=== PATIENT | male | born 1965 | race African-American/Black ===

== ENCOUNTER 2018-02-04 16:55 | Inpatient (IN) | payer OTHER ==
[~2018-02-04] VITALS: Ht 172.7 cm; Wt 122.0 kg
[~2018-02-04 16:55] MED LIST changes: -OPTIRAY 320 IV PRN; -RANI150T3 PO
[2018-02-04] MEDS ORDERED: METOCLOPRAMIDE HCL INJ 5 MG/ML 2 ML VIAL IV. STA (17:23)
[2018-02-04] MEDS ORDERED: MoRPHine SULFATE 4 MG/ML 1 ML CARP\\VIAL IV STA (17:23)
--- NOTE | 2018-02-04 17:25 | EMERGENCY ROOM VISIT NOTE ---
History Report prepared by Stacey: Brent Gutierrez Under the Supervision of: Dr. Nathaniel Lagunas M.D. First contact with patient: 17:05 Chief Complaint: ABDOMINAL PAIN Stated Complaint: ABDOMINAL PAIN History of Present Illness The patient is a 52 year old male with a past medical history of acid reflux who presents to the ED with a cc of constant abdominal pain beginning yesterday. Positive for nausea and dry heaving. Negative for urinary symptoms and edema. The patient states that he had a CT done for his abdominal pain yesterday and was referred to the emergency department today for a possible bowel obstruction. He notes that his current symptoms feel like one of his usual acid reflux attacks. He reports that his pain is worse on the lower left. The patient states that his last bowel movement was yesterday and was normal, but notes that he is not currently passing any gas. He reports that his pain worsens when he drinks. The patient states that his son recently had the flu. Source of History: patient Onset: yesterday Position: abdomen Timing: constant Modifying Factors (Worsening): drinking Associated Symptoms: + nausea, No urinary symptoms Note: He also complains of dry heaving. He denies any edema. Review of Systems See HPI for pertinent positives and negatives. A total of ten systems were reviewed and were otherwise negative. Past Medical & Surgical Medical Problems: (1) Acid reflux Family History No pertinent family history stated. Social History Smoking Status: Never Smoker Marital Status: Occupation Status: employed Current/Historical Medications Scheduled Fluticasone Propionate (Flonase Nasal [place] *), 1 SPRAY PRAVEENA BID Loratadine (Claritin), 10 MG PO DAILY Multivitamin (Multivitamin), 1 TAB PO DAILY Omeprazole (Prilosec), 20 MG PO DAILY Ranitidine Hcl (Zantac), 1 TAB PO BID Allergies Coded Allergies: No Known Allergies (Verified Allergy, Unknown, NO, 05/24/09) Physical Exam Vital Signs Date Time Temp Pulse Resp B/P (MAP) Pulse Ox O2 Delivery O2 Flow Rate FiO2 02/04/18 18:09 73 02/04/18 18:03 74 16 134/81 98 02/04/18 17:03 37.1 65 16 154/77 97 Room Air Physical Exam GENERAL: Awake, alert, well-appearing, NAD, wearing glasses HENT: Normocephalic, atraumatic. EYES: Normal conjunctiva. Sclera non-icteric. NECK: Supple. No nuchal rigidity. FROM. RESPIRATORY: CTAB, no rhonchi, wheezing, crackles CARDIAC: RRR, no MRG ABDOMEN: Soft, BS+, epigastric left upper and left side TTP, mild distension MSK: No chest wall TTP, no LE edema NEURO: GCS 15, CN 2-12 intact, moves all 4s on command SKIN: No rash or jaundice noted. Medical Decision & Procedures ER Provider Diagnostic Interpretation: Radiology results as stated below per my review and radiologist interpretation: CT SCAN OF THE ABDOMEN AND PELVIS WITH IV CONTRAST FINDINGS: Lung bases: The heart is normal in size and without pericardial effusion. The lung bases are clear. Liver: The contrast-enhanced liver is normal in size, contour, and attenuation. There is no intrahepatic biliary ductal dilatation. The hepatic veins and portal veins are patent. Gallbladder: There are large calcified gallstones. Spleen: Normal in size and attenuation. Pancreas: Unremarkable. Adrenal glands: Unremarkable. Kidneys: The contrast enhanced kidneys demonstrate mild cortical atrophy and are without hydronephrosis. The kidneys enhance symmetrically. Abdominal vasculature: The abdominal aorta is normal in course and caliber. Bowel: The stomach and proximal small bowel loops are distended and filled with fluid. Small bowel loops measure up to 3.3 cm in transverse diameter. A transition point is identified in the right lower quadrant on image #351, and the appearance is consistent with a small bowel obstruction. The distal small bowel and colon are decompressed. There is no pneumatosis intestinalis or portal venous gas. No focally thick walled bowel loops are identified. A small volume of interloop fluid is noted. There is mild to moderate colonic diverticulosis without CT evidence of acute diverticulitis. The appendix is not identified and reported surgically absent. Peritoneum: There is no intraperitoneal free air. A small volume of free fluid is seen in the pelvis. There is a small fat-containing umbilical hernia. Surgical clips are identified in the right lower quadrant. Lymphadenopathy: None. Pelvic viscera: The bladder is decompressed and not well evaluated. The prostate gland is diminutive. There are small bilateral fat-containing inguinal hernias. Skeletal structures: No lytic or blastic lesions are seen. IMPRESSION: 1. Findings are consistent with a small bowel obstruction. A transition point is identified in the right lower quadrant and this is likely on the basis of adhesions. 2. Interloop fluid and a small volume of free fluid in the pelvis are likely on a reactive basis. 3. There is no intraperitoneal free air, pneumatosis intestinalis, or focally thick walled bowel loops. 4. Cholelithiasis without CT evidence of acute cholecystitis. 5. Mild to moderate colonic diverticulosis without CT evidence of acute diverticulitis. 6. Additional findings as above. Electronically signed by: Daniel Pritchett M.D. 02/04/2018 4:23 PM Laboratory Results 02/04/18 17:30 Red Blood Count 4.95, Mean Corpuscular Volume 90.3, Mean Corpuscular Hemoglobin 31.1, Mean Corpuscular Hemoglobin Concent 34.5, Mean Platelet Volume 9.4, Neutrophils (%) (Auto) 72.9, Lymphocytes (%) (Auto) 18.0, Monocytes (%) (Auto) 8.2, Eosinophils (%) (Auto) 0.7, Basophils (%) (Auto) 0.1, Neutrophils # (Auto) 6.51, Lymphocytes # (Auto) 1.61, Monocytes # (Auto) 0.73, Eosinophils # (Auto) 0.06, Basophils # (Auto) 0.01 02/04/18 17:30 Test 02/04/18 17:23 02/04/18 17:30 Urine Color YELLOW Urine Appearance CLEAR (CLEAR) Urine pH 6.5 (4.5-7.5) Urine Specific [place] > 1.045 (1.000-1.030) Urine Protein NEG (NEG) Urine Glucose (UA) NEG (NEG) Urine Ketones NEG (NEG) Urine Occult Blood TRACE (NEG) Urine Nitrite NEG (NEG) Urine Bilirubin NEG (NEG) Urine Urobilinogen NEG (NEG) Urine Leukocyte Esterase NEG (NEG) Urine WBC (Auto) 1-5 /hpf (0-5) Urine RBC (Auto) 0-4 /hpf (0-4) Urine Hyaline Casts (Auto) 1-5 /lpf (0-5) Urine Epithelial Cells (Auto) 5-10 /lpf (0-5) Urine Bacteria (Auto) NEG (NEG) White Blood Count 8.93 K/uL (4.8-10.8) Red Blood Count 4.95 M/uL (4.7-6.1) Hemoglobin 15.4 g/dL (14.0-18.0) Hematocrit 44.7 % (42-52) Mean Corpuscular Volume 90.3 fL (80-100) Mean Corpuscular Hemoglobin 31.1 pg (25-34) Mean Corpuscular Hemoglobin Concent 34.5 g/dl (32-36) Platelet Count 244 K/uL (130-400) Mean Platelet Volume 9.4 fL (7.4-10.4) Neutrophils (%) (Auto) 72.9 % Lymphocytes (%) (Auto) 18.0 % Monocytes (%) (Auto) 8.2 % Eosinophils (%) (Auto) 0.7 % Basophils (%) (Auto) 0.1 % Neutrophils # (Auto) 6.51 K/uL (1.4-6.5) Lymphocytes # (Auto) 1.61 K/uL (1.2-3.4) Monocytes # (Auto) 0.73 K/uL (0.11-0.59) Eosinophils # (Auto) 0.06 K/uL (0-0.5) Basophils # (Auto) 0.01 K/uL (0-0.2) RDW Standard Deviation 42.7 fL (36.4-46.3) RDW Coefficient of Variation 13.0 % (11.5-14.5) Immature Granulocyte % (Auto) 0.1 % Immature Granulocyte # (Auto) 0.01 K/uL (0.00-0.02) Anion Gap 5.0 mmol/L (3-11) Est Creatinine Clear Calc Drug Dose 94.5 ml/min Estimated GFR () 82.1 Estimated GFR (Non- 70.8 BUN/Creatinine Ratio 9.8 (10-20) Calcium Level 9.4 mg/dl (8.5-10.1) Total Bilirubin 0.8 mg/dl (0.2-1) Direct Bilirubin 0.2 mg/dl (0-0.2) Aspartate Amino Transf (AST/SGOT) 13 U/L (15-37) Alanine Aminotransferase (ALT/SGPT) 26 U/L (12-78) Alkaline Phosphatase 66 U/L (45-117) Total Protein 7.8 gm/dl (6.4-8.2) Albumin 3.3 gm/dl (3.4-5.0) Lipase 104 U/L (73-393) Laboratory results reviewed by me Medications Administered Medications (Trade) Dose Ordered Sig/Rosenda Route Start Time Stop Time Status Last Admin Dose Admin Metoclopramide HCl (Reglan Inj) 10 mg NOW STAT IV. 02/04/18 17:23 02/04/18 17:25 DC 02/04/18 18:01 10 MG ED Course 170: The patient was evaluated in room B2. A complete history and physical exam was performed. 1809: I spoke to Ramon GAVIN. 1813: Upon reexamination, the patient was stable. I discussed the test results and treatment plan with him. Discussed the patient's case with Dr. Santacruz - JACQUES Mcguire. The patient will be evaluated for further management. Medical Decision The patient is a 52 year old male with a past medical history of acid reflux who presents to the ED with a cc of constant abdominal pain beginning yesterday. Positive for nausea and dry heaving. Negative for urinary symptoms and edema. Differential diagnosis: Etiologies such as appendicitis, diverticulitis, PUD, biliary pathology, UTI, pancreatitis, obstruction, mesenteric ischemia, aortic pathology, infections, inflammatory bowel disease, renal colic, as well as others were entertained. Patient was seen and evaluated the bedside. Patient had complained of some intermittent abdominal pain that began yesterday. Patient had a last bowel movement was yesterday. Patient states that it is obstipated no longer passing gas. Patient did have a CT of the abdomen pelvis that was completed this morning. Did show a small bowel obstruction with a transition point. Patient does have some mild abdominal discomfort on the left side. Patient has had some dry heaving but no true vomiting. Patient has had a prior surgical procedure on the abdomen which include an appendectomy. Patient denies any other procedures. General surgery was consulted. They will see the patient. The medicine service was paged. An NG tube was ordered and placed to low intermittent suction. Head Trauma GCS Score: 15 Medication Reconcilliation Current Medication List: was personally reviewed by me Blood Pressure Screening Patient's blood pressure: Elevated blood pressure Blood pressure disposition: Elevated BP felt to be situational Consults Time Called: 1809 Consulting Physician: Ashanti Meehan Surgery ROMAINE Returned Call: 1809 Discussed the patient's case. Additional Consults: Time Called: 1809 Consulted Physician: Dr. Santacruz - BRANDON McguireG Returned Call: 1813 Additional Comments: Discussed the patient's case. The patient will be evaluated for further treatment and disposition. Impression Primary Impression: SBO (small bowel obstruction) Scribe Attestation The scribe's documentation has been prepared under my direction and personally reviewed by me in its entirety. I confirm that the note above accurately reflects all work, treatment, procedures, and medical decision making performed by me. Departure Information Dispostion Being Evaluated By Hospitalist Referrals Isaiah Disla III, CRNP (PCP) Patient Instructions My [facility]
[2018-02-04 17:55] LABS: BASO % 0.1 %; BASO ABS # 0.01 K/uL (0-0.2); EOS % 0.7 %; EOS ABS # 0.06 K/uL (0-0.5); HEMATOCRIT 44.7 % (42-52); HEMOGLOBIN 15.4 g/dL (14.0-18.0); IG# 0.01 K/uL (0.00-0.02); LYMPH ABS # 1.61 K/uL (1.2-3.4); MEAN CELL VOLUME 90.3 fL (80-100); MEAN CORPUSCULAR HEMOGLOBIN 31.1 pg (25-34); MEAN CORPUSCULAR HGB CONC 34.5 g/dl (32-36); MEAN PLATELET VOLUME 9.4 fL (7.4-10.4); MONO % 8.2 %; MONO ABS # 0.73 K/uL (0.11-0.59); NEUT % 72.9 %; NEUT ABS # 6.51 K/uL (1.4-6.5); PLATELET COUNT 244 K/uL (130-400); RED CELL DISTRIBUTION WIDTH SD 42.7 fL (36.4-46.3); WHITE BLOOD COUNT 8.93 K/uL (4.8-10.8)
[2018-02-04] MEDS ORDERED: RANI150T3 PO (18:22)
[2018-02-04 18:39] LABS: ALBUMIN 3.3 gm/dl (3.4-5.0); CALCIUM 9.4 mg/dl (8.5-10.1); CREATININE 1.19 mg/dl (0.60-1.40); POTASSIUM 3.7 mmol/L (3.5-5.1)
[2018-02-04 18:42] LABS: TOTAL PROTEIN 7.8 gm/dl (6.4-8.2)
[2018-02-04] MEDS ORDERED: HYDROmorphone INJ 0.5 MG/0.5 ML SYR IV PRN (19:00)
[2018-02-04] MEDS ORDERED: ONDANSETRON INJ 2 MG/ML 2 ML VIAL IV PRN (19:00)
--- NOTE | 2018-02-04 19:03 | History and Physical ---
History & Physical Date & Time of Service: Feb 04, 2018 at 19:02 Chief Complaint: Abdominal Pain Primary Care Physician: Isaiah Disla III, CRNP History of Present Illness Source: patient 52 y/o M Hx GERD, appendectomy in 1984. Presents with lower abdominal pain, nausea and dry-heaving. Denies fevers or diarrhea. A CT abdomen in the ER revealed an SBO. 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 [employer] Smoking Status: Never Smoker Marital Status: Occupational Status: employed Allergies Coded Allergies: No Known Allergies (Verified Allergy, Unknown, NO, 05/24/09) Home Medications Scheduled Fluticasone Propionate (Flonase Nasal [place] *), 1 SPRAY PRAVEENA BID Loratadine (Claritin), 10 MG PO DAILY Multivitamin (Multivitamin), 1 TAB PO DAILY Omeprazole (Prilosec), 20 MG PO DAILY Ranitidine Hcl (Zantac), 1 TAB PO BID Review of Systems Constitutional: No fever, No chills, No sweats Eyes: No worsening of vision ENT: No hearing loss, No unusual epistaxis, No nasal symptoms Respiratory: No cough, No sputum, No wheezing Cardiovascular: No chest pain Abdomen: + pain, + nausea, + vomiting Musculoskeletal: No joint pain Genitourinary - Male: No hematuria, No dysuria Neurologic: No paralysis, No weakness Psychiatric: No depression symptoms Endocrine: No fatigue Hematologic / Lymphatic: No abnormal bleeding/bruising Integumentary: No rash Allergic / Immunologic: No environmental allergies Physical Exam Vital Signs Date Time Temp Pulse Resp B/P (MAP) Pulse Ox O2 Delivery O2 Flow Rate FiO2 02/04/18 18:09 73 02/04/18 18:03 74 16 134/81 98 02/04/18 17:03 37.1 65 16 154/77 97 Room Air General Appearance: WD/WN, no apparent distress Head: normocephalic Eyes: normal inspection ENT: normal ENT inspection, pharynx normal Neck: supple, no JVD Respiratory/Chest: chest non-tender, lungs clear, normal breath sounds Cardiovascular: regular rate, rhythm, no edema, no gallop Abdomen/GI: + pertinent finding (Distended abdomen is diffusely tender) Back: normal inspection, no CVA tenderness Extremities/Musculoskelatal: normal inspection, no calf tenderness, normal capillary refill Neurologic/Psych: weeder II-XII nml as tested, no motor/sensory deficits, alert, oriented x 3 Skin: normal color Diagnostics Laboratory Results Results Past 24 Hours Test 02/04/18 17:23 02/04/18 17:30 Range/Units Urine Color YELLOW Urine Appearance CLEAR CLEAR Urine pH 6.5 4.5-7.5 Urine Specific [place] > 1.045 1.000-1.030 Urine Protein NEG NEG Urine Glucose (UA) NEG NEG Urine Ketones NEG NEG Urine Occult Blood TRACE NEG Urine Nitrite NEG NEG Urine Bilirubin NEG NEG Urine Urobilinogen NEG NEG Urine Leukocyte Esterase NEG NEG Urine WBC (Auto) 1-5 0-5 /hpf Urine RBC (Auto) 0-4 0-4 /hpf Urine Hyaline Casts (Auto) 1-5 0-5 /lpf Urine Epithelial Cells (Auto) 5-10 0-5 /lpf Urine Bacteria (Auto) NEG NEG White Blood Count 8.93 4.8-10.8 K/uL Red Blood Count 4.95 4.7-6.1 M/uL Hemoglobin 15.4 14.0-18.0 g/dL Hematocrit 44.7 42-52 % Mean Corpuscular Volume 90.3 80-100 fL Mean Corpuscular Hemoglobin 31.1 25-34 pg Mean Corpuscular Hemoglobin Concent 34.5 32-36 g/dl Platelet Count 244 130-400 K/uL Mean Platelet Volume 9.4 7.4-10.4 fL Neutrophils (%) (Auto) 72.9 % Lymphocytes (%) (Auto) 18.0 % Monocytes (%) (Auto) 8.2 % Eosinophils (%) (Auto) 0.7 % Basophils (%) (Auto) 0.1 % Neutrophils # (Auto) 6.51 1.4-6.5 K/uL Lymphocytes # (Auto) 1.61 1.2-3.4 K/uL Monocytes # (Auto) 0.73 0.11-0.59 K/uL Eosinophils # (Auto) 0.06 0-0.5 K/uL Basophils # (Auto) 0.01 0-0.2 K/uL RDW Standard Deviation 42.7 36.4-46.3 fL RDW Coefficient of Variation 13.0 11.5-14.5 % Immature Granulocyte % (Auto) 0.1 % Immature Granulocyte # (Auto) 0.01 0.00-0.02 K/uL Sodium Level 136 136-145 mmol/L Potassium Level 3.7 3.5-5.1 mmol/L Chloride Level 106 98-107 mmol/L Carbon Dioxide Level 25 21-32 mmol/L Anion Gap 5.0 3-11 mmol/L Blood Urea Nitrogen 12 7-18 mg/dl Creatinine 1.19 0.60-1.40 mg/dl Est Creatinine Clear Calc Drug Dose 94.5 ml/min Estimated GFR () 82.1 Estimated GFR (Non- 70.8 BUN/Creatinine Ratio 9.8 10-20 Random Glucose 119 70-99 mg/dl Calcium Level 9.4 8.5-10.1 mg/dl Total Bilirubin 0.8 0.2-1 mg/dl Direct Bilirubin 0.2 0-0.2 mg/dl Aspartate Amino Transf (AST/SGOT) 13 15-37 U/L Alanine Aminotransferase (ALT/SGPT) 26 12-78 U/L Alkaline Phosphatase 66 45-117 U/L Total Protein 7.8 6.4-8.2 gm/dl Albumin 3.3 3.4-5.0 gm/dl Lipase 104 73-393 U/L Diagnostic Radiology CT abdomen: 1. Findings are consistent with a small bowel obstruction. A transition point is identified in the right lower quadrant and this is likely on the basis of adhesions. 2. Interloop fluid and a small volume of free fluid in the pelvis are likely on a reactive basis. 3. There is no intraperitoneal free air, pneumatosis intestinalis, or focally thick walled bowel loops. 4. Cholelithiasis without CT evidence of acute cholecystitis. 5. Mild to moderate colonic diverticulosis without CT evidence of acute diverticulitis. 6. Additional findings as above. Impression Assessment and Plan 52 y/o M Hx GERD, appendectomy in 1984. Presents with lower abdominal pain, nausea and dry-heaving. Denies fevers or diarrhea. A CT abdomen in the ER revealed an SBO. 1) SBO - likely adhesions - pt is NPO - NGT placed - antiemetics, analgesics and IVF provided - surgery consult pending 2) GERD - provided with a PPi Full code - SCDs - start anticoagulation if surgery is ruled out Total time for this admit including review of labs, meds, imaging - discussion with pt and ER attending - 35 min Resuscitation Status VTE Prophylaxis Will order VTE Prophylaxis: Yes
--- NOTE | 2018-02-04 19:53 | DIAGNOSTIC IMAGING REPORT ---
KUB HISTORY: Status post placement of an enteric tube NG TUBE COMPARISON: CT 02/04/2018 FINDINGS: Status post placement of an enteric tube with distal tip terminating in the right upper abdomen, likely within the region of the distal gastric lumen. Decreased gastric distention from comparison. Gas-filled mildly dilated loops of small bowel are seen within the upper abdomen. There is no organomegaly. No renal calculi. No ureteral calculi. No pneumoperitoneum or pneumatosis. Cholelithiasis better seen on CT of same day. No fracture. IMPRESSION: Distal enteric tube projects over the right upper abdomen, likely within the distal gastric lumen. Electronically signed by: Rosas Gonzalez M.D. 02/04/2018 7:51 PM Dictated Date/Time: 02/04/2018 7:50 PM
--- NOTE | 2018-02-04 20:16 | Surgery Consultation ---
Consultation Date of Consultation: Feb 04, 2018. Attending Physician: Reason for Consultation: small bowel obstruction (Ming Pelayo PA-C) History of Present Illness Patient is a 52 Male with PMHx of GERD who presented to the ED this evening due to abdominal pain which started yesterday morning. States he went to his PCP today who then ordered blood work and a CT scan here at the hospital. His PCP called him with the CT results and instructed him to come to the ED for further care. Reports the pain was somewhat off and on throughout yesterday and then became more constant today. He reports nausea since the onset of his pain and multiple episodes of dry heaving but denies vomiting anything up. Reports last BM was yesterday late morning. Notes he has not been passing gas. He last ate some soup today before his CT scan. He has been urinating without trouble. PSHx significant for appendectomy (1984). Patient does report some intermittent chills since the onset of his symptoms but denies fever or recent illness. He does note that his son has been sick with the flu recently. Denies use of any blood thinning or anticoagulant medications. Reports he has never had a colonoscopy but was told he was supposed to have one this year. He is unsure of any family history of colon cancer as he is adopted. WBC WNL. CT abd/pelvis shows findings consistent with a small bowel obstruction. A transition point is identified in the right lower quadrant and this is likely on the basis of adhesions. Interloop fluid and a small volume of free fluid in the pelvis are likely on a reactive basis. There is no intraperitoneal free air, pneumatosis intestinalis, or focally thick walled bowel loops. Cholelithiasis and Mild to moderate colonic diverticulosis. (Ming Pelayo PA-C) Past Medical/Surgical History Medical Problems: (1) SBO (small bowel obstruction) Status: Acute (Ming Pelayo PA-C) Social History Smoking Status: Never Smoker Marital Status: Occupation Status: employed (Ming Pelayo PA-C) Allergies Coded Allergies: No Known Allergies (Verified Allergy, Unknown, NO, 05/24/09) Home Medications Scheduled Fluticasone Propionate (Flonase Nasal [place] *), 1 SPRAY PRAVEENA BID Loratadine (Claritin), 10 MG PO DAILY Multivitamin (Multivitamin), 1 TAB PO DAILY Omeprazole (Prilosec), 20 MG PO DAILY Ranitidine Hcl (Zantac), 1 TAB PO BID Current Inpatient Medications Current Inpatient Medications Medications (Trade) Dose Ordered Sig/Rosenda Route Start Time Stop Time Status Last Admin Dose Admin Ondansetron HCl (Zofran Inj) 4 mg Q6H PRN IV 02/04/18 19:00 03/06/18 18:59 Potassium Chloride/Dextrose/ Sod Cl 1,000 ml @ 125 mls/hr Q8H IV 02/04/18 19:00 03/06/18 18:59 UNV Hydromorphone HCl (Dilaudid Inj) 0.5 mg Q3H PRN IV 02/04/18 19:00 02/18/18 18:59 Pantoprazole Sodium 40 mg/ Syringe 10 ml @ 5 mls/min DAILY@11 IV 02/05/18 11:00 03/07/18 10:59 UNV (Ming Pelayo PA-C) Review of Systems Constitutional: + chills, No fever Respiratory: No shortness of breath Cardiovascular: No chest pain Abdomen: + pain (Generalized), + nausea, + vomiting (Dry heaves), + constipation (Last BM yesterday AM), No diarrhea Genitourinary - Male: No hematuria, No dysuria (Ming Pelayo PA-C) Physical Exam Date Time Temp Pulse Resp B/P (MAP) Pulse Ox O2 Delivery O2 Flow Rate FiO2 02/04/18 19:50 73 16 134/81 98 02/04/18 18:09 73 02/04/18 18:03 74 16 134/81 98 02/04/18 17:03 37.1 65 16 154/77 97 Room Air General Appearance: WD/WN, no apparent distress Head: normocephalic, atraumatic ENT: hearing grossly normal Neck: trachea midline Respiratory/Chest: no respiratory distress, no accessory muscle use Abdomen/GI: soft, no organomegaly, no pulsatile mass, + tenderness (mild generalized TTP more prominent in lower abdomen.), + abnormal bowel sounds ( Mildly hyperactive) Neurologic/Psych: alert, normal mood/affect, oriented x 3 Skin: normal color, warm/dry (Ming Pelayo PA-C) Laboratory Results Last 24 Hours Test 02/04/18 17:23 02/04/18 17:30 Urine Color YELLOW Urine Appearance CLEAR Urine pH 6.5 Urine Specific [place] > 1.045 Urine Protein NEG Urine Glucose (UA) NEG Urine Ketones NEG Urine Occult Blood TRACE Urine Nitrite NEG Urine Bilirubin NEG Urine Urobilinogen NEG Urine Leukocyte Esterase NEG Urine WBC (Auto) 1-5 /hpf Urine RBC (Auto) 0-4 /hpf Urine Hyaline Casts (Auto) 1-5 /lpf Urine Epithelial Cells (Auto) 5-10 /lpf Urine Bacteria (Auto) NEG White Blood Count 8.93 K/uL Red Blood Count 4.95 M/uL Hemoglobin 15.4 g/dL Hematocrit 44.7 % Mean Corpuscular Volume 90.3 fL Mean Corpuscular Hemoglobin 31.1 pg Mean Corpuscular Hemoglobin Concent 34.5 g/dl Platelet Count 244 K/uL Mean Platelet Volume 9.4 fL Neutrophils (%) (Auto) 72.9 % Lymphocytes (%) (Auto) 18.0 % Monocytes (%) (Auto) 8.2 % Eosinophils (%) (Auto) 0.7 % Basophils (%) (Auto) 0.1 % Neutrophils # (Auto) 6.51 K/uL Lymphocytes # (Auto) 1.61 K/uL Monocytes # (Auto) 0.73 K/uL Eosinophils # (Auto) 0.06 K/uL Basophils # (Auto) 0.01 K/uL RDW Standard Deviation 42.7 fL RDW Coefficient of Variation 13.0 % Immature Granulocyte % (Auto) 0.1 % Immature Granulocyte # (Auto) 0.01 K/uL Sodium Level 136 mmol/L Potassium Level 3.7 mmol/L Chloride Level 106 mmol/L Carbon Dioxide Level 25 mmol/L Anion Gap 5.0 mmol/L Blood Urea Nitrogen 12 mg/dl Creatinine 1.19 mg/dl Est Creatinine Clear Calc Drug Dose 94.5 ml/min Estimated GFR () 82.1 Estimated GFR (Non- 70.8 BUN/Creatinine Ratio 9.8 Random Glucose 119 mg/dl Calcium Level 9.4 mg/dl Total Bilirubin 0.8 mg/dl Direct Bilirubin 0.2 mg/dl Aspartate Amino Transf (AST/SGOT) 13 U/L Alanine Aminotransferase (ALT/SGPT) 26 U/L Alkaline Phosphatase 66 U/L Total Protein 7.8 gm/dl Albumin 3.3 gm/dl Lipase 104 U/L (Ming Pelayo, PA-C) Assessment & Plan small bowel obstruction with transition point in the RLQ likely on the basis of adhesions Pain controlled, No N/V at this time. NGT in place on LIWS. Will opt for conservative management at this time. Admit per medicine service, NPO, NGT on LIWS, pain medication PRN, zofran PRN. Findings discussed with Dr. Willson. Will follow. Please contact with questions or concerns. (Ming Pelayo, PA-C) 02/04/18- pt examined- nausea and dry heaves- no actual vomiting but reportedly significant output with NG. Abd is mildly distended with minimal tenderness- has vigorous bowel sounds- Cont NG for now- IV fluids- may have ice. Monitor electrolytes (Jun Willson M.D.)
[2018-02-04 20:41] VITALS: BP 138/85; PULSE 62; TEMP 36.8; O2SAT 99
[2018-02-04] MEDS: D5NSS + 20MEQ KCL 1,000 ML IV SCH (21:32)
[2018-02-04 21:52] VITALS: BP 138/85; PULSE 62; TEMP 36.8; Ht 172.7 cm; Wt 122.0 kg
[2018-02-05 00:25] VITALS: BP 129/76; PULSE 60; TEMP 36.8; O2SAT 97
[2018-02-05] MEDS: D5NSS + 20MEQ KCL 1,000 ML IV SCH ×2 (03:55→12:03)
--- NOTE | 2018-02-05 07:09 | Surgery Progress Note ---
Surgery Progress Note Date of Service Feb 05, 2018. Subjective feels ok , minimal abd pain, min from NG Objective Vital Signs: Date Time Temp Pulse Resp B/P (MAP) Pulse Ox O2 Delivery O2 Flow Rate FiO2 02/05/18 00:25 36.8 60 16 129/76 (93) 97 Room Air 02/05/18 00:04 Room Air 02/04/18 21:52 36.8 62 19 138/85 Room Air 02/04/18 20:41 36.8 62 19 138/85 (102) 99 Room Air 02/04/18 19:50 73 16 134/81 98 02/04/18 18:09 73 02/04/18 18:03 74 16 134/81 98 02/04/18 17:03 37.1 65 16 154/77 97 Room Air General Appearance: no apparent distress Respiratory/Chest: no respiratory distress Abdomen: normal bowel sounds, + distended Laboratory Results: Results Past 24 Hours Test 02/04/18 17:23 02/04/18 17:30 02/05/18 04:44 Range/Units Urine Color YELLOW Urine Appearance CLEAR CLEAR Urine pH 6.5 4.5-7.5 Urine Specific [place] > 1.045 1.000-1.030 Urine Protein NEG NEG Urine Glucose (UA) NEG NEG Urine Ketones NEG NEG Urine Occult Blood TRACE NEG Urine Nitrite NEG NEG Urine Bilirubin NEG NEG Urine Urobilinogen NEG NEG Urine Leukocyte Esterase NEG NEG Urine WBC (Auto) 1-5 0-5 /hpf Urine RBC (Auto) 0-4 0-4 /hpf Urine Hyaline Casts (Auto) 1-5 0-5 /lpf Urine Epithelial Cells (Auto) 5-10 0-5 /lpf Urine Bacteria (Auto) NEG NEG White Blood Count 8.93 4.8-10.8 K/uL Red Blood Count 4.95 4.7-6.1 M/uL Hemoglobin 15.4 14.0-18.0 g/dL Hematocrit 44.7 42-52 % Mean Corpuscular Volume 90.3 80-100 fL Mean Corpuscular Hemoglobin 31.1 25-34 pg Mean Corpuscular Hemoglobin Concent 34.5 32-36 g/dl Platelet Count 244 130-400 K/uL Mean Platelet Volume 9.4 7.4-10.4 fL Neutrophils (%) (Auto) 72.9 % Lymphocytes (%) (Auto) 18.0 % Monocytes (%) (Auto) 8.2 % Eosinophils (%) (Auto) 0.7 % Basophils (%) (Auto) 0.1 % Neutrophils # (Auto) 6.51 1.4-6.5 K/uL Lymphocytes # (Auto) 1.61 1.2-3.4 K/uL Monocytes # (Auto) 0.73 0.11-0.59 K/uL Eosinophils # (Auto) 0.06 0-0.5 K/uL Basophils # (Auto) 0.01 0-0.2 K/uL RDW Standard Deviation 42.7 36.4-46.3 fL RDW Coefficient of Variation 13.0 11.5-14.5 % Immature Granulocyte % (Auto) 0.1 % Immature Granulocyte # (Auto) 0.01 0.00-0.02 K/uL Sodium Level 136 136-145 mmol/L Potassium Level 3.7 3.5-5.1 mmol/L Chloride Level 106 98-107 mmol/L Carbon Dioxide Level 25 21-32 mmol/L Anion Gap 5.0 3-11 mmol/L Blood Urea Nitrogen 12 7-18 mg/dl Creatinine 1.19 0.60-1.40 mg/dl Est Creatinine Clear Calc Drug Dose 94.5 ml/min Estimated GFR () 82.1 Estimated GFR (Non- 70.8 BUN/Creatinine Ratio 9.8 10-20 Random Glucose 119 70-99 mg/dl Calcium Level 9.4 8.5-10.1 mg/dl Total Bilirubin 0.8 0.2-1 mg/dl Direct Bilirubin 0.2 0-0.2 mg/dl Aspartate Amino Transf (AST/SGOT) 13 15-37 U/L Alanine Aminotransferase (ALT/SGPT) 26 12-78 U/L Alkaline Phosphatase 66 45-117 U/L Total Protein 7.8 6.4-8.2 gm/dl Albumin 3.3 3.4-5.0 gm/dl Lipase 104 73-393 U/L Assessment & Plan 02/05/18- suspect this more gastroenteritis than mechanical obstruction. clamp NG, give ice and popsicles- possibly d/c NG later today. I don't think he will require surgical intervention. encouraged to walk in hallway.
[2018-02-05 07:30] VITALS: BP 134/73; PULSE 59; TEMP 36.8; O2SAT 98
[2018-02-05 08:12] LABS: HEMATOCRIT 41.9 % (42-52); HEMOGLOBIN 14.3 g/dL (14.0-18.0); MEAN CELL VOLUME 92.3 fL (80-100); MEAN CORPUSCULAR HEMOGLOBIN 31.5 pg (25-34); MEAN CORPUSCULAR HGB CONC 34.1 g/dl (32-36); MEAN PLATELET VOLUME 9.6 fL (7.4-10.4); PLATELET COUNT 214 K/uL (130-400); RED CELL DISTRIBUTION WIDTH CV 13.1 % (11.5-14.5); RED CELL DISTRIBUTION WIDTH SD 43.9 fL (36.4-46.3); WHITE BLOOD COUNT 6.86 K/uL (4.8-10.8)
[2018-02-05 08:38] LABS: CALCIUM 8.4 mg/dl (8.5-10.1); CREATININE 1.16 mg/dl (0.60-1.40); POTASSIUM 4.1 mmol/L (3.5-5.1)
--- NOTE | 2018-02-05 08:44 | Hospitalist Progress Note ---
Hospitalist Progress Note Date of Service Feb 05, 2018. Subjective Pt evaluation today including: conversation w/ patient, physical exam, chart review, lab review, review of studies Pain: Minimal diffuse abdominal pain PO Intake: Ice and popsicles Voiding: no voiding problems The patient was seen and examined this morning. Pt reports doing much better this morning. NGT has been clamped and he is tolerating ice and popsicles this morning without difficulty. Denies any nausea or vomiting since last night. He had a large formed bowel movement this morning and is passing flatus. No fever , chills or sweats. Constitutional: No fever, No chills, No sweats Eyes: No redness ENT: No nasal symptoms, No sore throat Respiratory: No cough, No sputum, No wheezing, No shortness of breath Cardiovascular: No chest pain, No edema, No palpitations Abdomen: + pain (minimal), No nausea, No vomiting, No diarrhea, No constipation Musculoskeletal: No joint pain, No muscle pain Neurologic: No weakness, No numbness/tingling Objective Vital Signs Date Time Temp Pulse Resp B/P (MAP) Pulse Ox O2 Delivery O2 Flow Rate FiO2 02/05/18 00:25 36.8 60 16 129/76 (93) 97 Room Air 02/05/18 00:04 Room Air 02/04/18 21:52 36.8 62 19 138/85 Room Air 02/04/18 20:41 36.8 62 19 138/85 (102) 99 Room Air 02/04/18 19:50 73 16 134/81 98 02/04/18 18:09 73 02/04/18 18:03 74 16 134/81 98 02/04/18 17:03 37.1 65 16 154/77 97 Room Air Physical Exam General Appearance: WD/WN, no apparent distress, + pertinent finding ( male) Eyes: PERRL, EOMI ENT: hearing grossly normal, pharynx normal, + pertinent finding (NGT in place , clamped) Neck: supple, thyroid normal Respiratory/Chest: lungs clear, no respiratory distress, no accessory muscle use Cardiovascular: regular rate, rhythm, no murmur Abdomen: normal bowel sounds, soft, + tenderness (with deep palpation in the LUQ and RLQ) Extremities: non-tender, no pedal edema, no calf tenderness Neurologic/Psychiatric: alert, normal mood/affect, oriented x 3 Skin: normal color, warm/dry Laboratory Results Last 24 Hours Test 02/04/18 17:23 02/04/18 17:30 02/05/18 07:44 Urine Color YELLOW Urine Appearance CLEAR Urine pH 6.5 Urine Specific [place] > 1.045 Urine Protein NEG Urine Glucose (UA) NEG Urine Ketones NEG Urine Occult Blood TRACE Urine Nitrite NEG Urine Bilirubin NEG Urine Urobilinogen NEG Urine Leukocyte Esterase NEG Urine WBC (Auto) 1-5 /hpf Urine RBC (Auto) 0-4 /hpf Urine Hyaline Casts (Auto) 1-5 /lpf Urine Epithelial Cells (Auto) 5-10 /lpf Urine Bacteria (Auto) NEG White Blood Count 8.93 K/uL 6.86 K/uL Red Blood Count 4.95 M/uL 4.54 M/uL Hemoglobin 15.4 g/dL 14.3 g/dL Hematocrit 44.7 % 41.9 % Mean Corpuscular Volume 90.3 fL 92.3 fL Mean Corpuscular Hemoglobin 31.1 pg 31.5 pg Mean Corpuscular Hemoglobin Concent 34.5 g/dl 34.1 g/dl Platelet Count 244 K/uL 214 K/uL Mean Platelet Volume 9.4 fL 9.6 fL Neutrophils (%) (Auto) 72.9 % Lymphocytes (%) (Auto) 18.0 % Monocytes (%) (Auto) 8.2 % Eosinophils (%) (Auto) 0.7 % Basophils (%) (Auto) 0.1 % Neutrophils # (Auto) 6.51 K/uL Lymphocytes # (Auto) 1.61 K/uL Monocytes # (Auto) 0.73 K/uL Eosinophils # (Auto) 0.06 K/uL Basophils # (Auto) 0.01 K/uL RDW Standard Deviation 42.7 fL 43.9 fL RDW Coefficient of Variation 13.0 % 13.1 % Immature Granulocyte % (Auto) 0.1 % Immature Granulocyte # (Auto) 0.01 K/uL Sodium Level 136 mmol/L 140 mmol/L Potassium Level 3.7 mmol/L 4.1 mmol/L Chloride Level 106 mmol/L 108 mmol/L Carbon Dioxide Level 25 mmol/L 28 mmol/L Anion Gap 5.0 mmol/L 4.0 mmol/L Blood Urea Nitrogen 12 mg/dl 10 mg/dl Creatinine 1.19 mg/dl 1.16 mg/dl Est Creatinine Clear Calc Drug Dose 94.5 ml/min 96.8 ml/min Estimated GFR () 82.1 84.6 Estimated GFR (Non- 70.8 73.0 BUN/Creatinine Ratio 9.8 8.4 Random Glucose 119 mg/dl 111 mg/dl Calcium Level 9.4 mg/dl 8.4 mg/dl Total Bilirubin 0.8 mg/dl Direct Bilirubin 0.2 mg/dl Aspartate Amino Transf (AST/SGOT) 13 U/L Alanine Aminotransferase (ALT/SGPT) 26 U/L Alkaline Phosphatase 66 U/L Total Protein 7.8 gm/dl Albumin 3.3 gm/dl Lipase 104 U/L Magnesium Level 2.3 mg/dl Assessment and Plan 52 y/o M Hx GERD, appendectomy in 1984. Presents with lower abdominal pain, nausea and dry-heaving. Denies fevers or diarrhea. A CT abdomen in the ER revealed an SBO. SBO - likely adhesions - pt allowed ice and popsicles and is tolerating without difficulty, BM this morning. - General surgery on board- appreciate recs - NGT placed -clamped now - likely can be pulled this afternoon. - Cont antiemetics, analgesics and IVF provided - Likely can advance diet tomorrow morning per general surgery recommendations. GERD - provided with a PPI DVT ppx: SCDs, the patient is ambulatory so no need for chemical DVT prophylaxis CODE STATUS: FULL Disposition: Patient from home, lives alone. No case management needs anticipated.
[2018-02-05] MEDS: PANTOprazole INJ 40 MG in SYRINGE 0 ML IV SCH (10:44)
[2018-02-05 15:21] VITALS: BP 134/80; PULSE 58; TEMP 36.5; O2SAT 97
[2018-02-05 15:45] VITALS: O2SAT 97
[2018-02-05 22:49] VITALS: BP 128/76; PULSE 50; TEMP 37.1; O2SAT 96
[2018-02-06 06:56] VITALS: BP 135/74; PULSE 52; TEMP 37.1; O2SAT 98
[2018-02-06] MEDS: PANTOprazole INJ 40 MG in SYRINGE 0 ML IV SCH (11:47)
--- NOTE | 2018-02-06 12:25 | Surgery Progress Note ---
Surgery Progress Note Date of Service Feb 06, 2018. Subjective + feeling well pt is doing better, passed gas and BM, no abdominal pain, no nausea, no vomiting , Objective Vital Signs: Date Time Temp Pulse Resp B/P (MAP) Pulse Ox O2 Delivery O2 Flow Rate FiO2 02/06/18 08:05 Room Air 02/06/18 06:56 37.1 52 18 135/74 (94) 98 Room Air 02/05/18 22:49 37.1 50 18 128/76 (93) 96 Room Air 02/05/18 19:45 Room Air 02/05/18 15:45 97 Room Air 02/05/18 15:21 36.5 58 16 134/80 (98) 97 Room Air General Appearance: WD/WN, no apparent distress Head: normocephalic Neck: supple, no JVD Respiratory/Chest: chest non-tender, lungs clear Cardiovascular: regular rate, rhythm, no edema, no gallop, no JVD, no murmur Abdomen: normal bowel sounds, non tender, non distended, soft, no organomegaly Extremities: normal range of motion, non-tender, normal inspection Assessment & Plan pt is doing fine, pt can be discharged today if he tolerated diet. F/U Dr. Willson in 1 week
--- NOTE | 2018-02-06 13:36 | Discharge Instructions ---
Discharge Instructions Date of Service Feb 06, 2018. Admission Reason for Admission: SBO Discharge Discharge Diagnosis / Problem: Small bowel obstruction Discharge Goals Goal(s): Decrease discomfort, Improve function, Increase independence Activity Recommendations Activity Limitations: resume your previous activity . Instructions / Follow-Up Instructions / Follow-Up You should start taking a probiotic once you feel that you are back to your usual diet and your bloating is improved. This may help to avoid further obstructions and may also help with your reflux. A good probiotic has a mix of lactobacillus and bifidobacter families. Aidan EPS is a good brand. It is available at [employer] or online. You should start with taking one every other day and then can move to one daily if you feel you are not having increased bloating. You should start this after you are back to your usual. Current Hospital Diet You do not have to eat only liquids at home, but you should keep your diet poultry packer and with smaller meals until you are feeling back to your usual. Patient's current hospital diet: Full Liquid Diet Discharge Diet Recommended Diet: Regular Diet (as above) Pending Studies Studies pending at discharge: no Medical Emergencies . Who to Call and When: Medical Emergencies: If at any time you feel your situation is an emergency, please call 911 immediately. . Non-Emergent Contact Non-Emergency issues call your: Primary Care Provider . . "Provider Documentation" section prepared by Roberta Samuel. .
--- NOTE | 2018-02-06 13:41 | Discharge Summary ---
Discharge Summary Date of Service Feb 06, 2018. Discharge Summary Admission Date: Feb 04, 2018 at 19:00 Discharge Date: Feb 06, 2018 Discharge Disposition: Home Principal Diagnosis: SBO Problems/Secondary Diagnoses: GERD s/p open appendectomy 1984 Consultations: Gen surg Medication Reconciliation Continued Medications: Fluticasone Propionate (Flonase Nasal [place] *) Inha 1 SPRAY PRAVEENA BID Loratadine (Claritin) 10 Mg Tab 10 MG PO DAILY Multivitamin (Multivitamin) Tab 1 TAB PO DAILY Omeprazole (Prilosec) 20 Mg Capcr 20 MG PO DAILY Ranitidine Hcl (Zantac) 150 Mg Tab 1 TAB PO BID for 90 Days, #180 TAB 3 Refills 75mg Discharge Exam Pt is feeling much improved. He has been passing gas and some stool. He tolerated clears for breakfast. Still with abd bloating, but overall improving. Pt denies fever, SOB, chest pain, n/vLE pain or swelling. Physical Exam: General Appearance: no apparent distress, + obese Eyes: normal inspection, sclerae normal Respiratory/Chest: normal breath sounds, no respiratory distress Cardiovascular: regular rate, rhythm, no edema Abdomen / GI: non tender, soft, + distended Extremities: no calf tenderness, no pedal edema Neurologic/Psychiatric: alert, normal mood/affect, oriented x 3 Skin: normal color, warm/dry Hospital Course 52 y/o M Hx GERD, appendectomy in 1984. Presents with lower abdominal pain, nausea and dry-heaving. Denies fevers or diarrhea. A CT abdomen in the ER revealed an SBO. SBO - likely adhesions related to open appendectomy Resolving with conservative management, pt is tolerating PO today Advised to keep diet light and with smaller meals until he feels back to his usual GERD: resume home medications Total Time Spent: Greater than 30 minutes This includes examination of the patient, discharge planning, medication reconciliation, and communication with other providers. Discharge Instructions Please refer to the electronic Patient Visit Report (Discharge Instructions) for additional information. Follow-Up Isaiah Disla as needed Additional Copies To Isaiah Disla III, CRNP
[2018-02-06 14:03] VITALS: BP 135/74; PULSE 52; TEMP 37.1; O2SAT 98
== END 2018-02-06 14:51 | disposition home or self-care (01) | DRG 390 ==
LOC: C.EDB 16:56 → C.MSN 19:00 → ENRESERV 19:31
PROVIDERS: ADMIT Internal Medicine; ATTEND Family Medicine
DX: K56.50 Intestinal adhesions [bands], unspecified as to partial versus complete obstruction (principal); K21.9 Gastro-esophageal reflux disease without esophagitis; Z79.899 Other long term (current) drug therapy

== ENCOUNTER → 2018-02-04 | Outpatient (CLI) | payer OTHER ==
[~2018-02-04] MED LIST: CLR10 PO; FLNIN NAE; HYDRELX3 PO; MULT-506 PO; OPTIRAY 320 IV PRN; PRLSR20 PO; RANI150T3 PO; RANI75TA7 PO
[2018-02-04 14:33] LABS: BASO % 0.1 %; BASO ABS # 0.01 K/uL (0-0.2); EOS % 0.7 %; EOS ABS # 0.06 K/uL (0-0.5); HEMATOCRIT 46.6 % (42-52); HEMOGLOBIN 15.8 g/dL (14.0-18.0); IG# 0.02 K/uL (0.00-0.02); LYMPH % 19.5 %; LYMPH ABS # 1.78 K/uL (1.2-3.4); MEAN CELL VOLUME 91.4 fL (80-100); MEAN CORPUSCULAR HGB CONC 33.9 g/dl (32-36); MEAN PLATELET VOLUME 9.7 fL (7.4-10.4); MONO ABS # 0.55 K/uL (0.11-0.59); NEUT % 73.5 %; NEUT ABS # 6.71 K/uL (1.4-6.5); PLATELET COUNT 254 K/uL (130-400); RED CELL DISTRIBUTION WIDTH CV 12.9 % (11.5-14.5); WHITE BLOOD COUNT 9.13 K/uL (4.8-10.8)
--- NOTE | 2018-02-04 16:24 | DIAGNOSTIC IMAGING REPORT ---
CT SCAN OF THE ABDOMEN AND PELVIS WITH IV CONTRAST CLINICAL HISTORY: Generalized abdominal pain. COMPARISON STUDY: Abdominal CT dated 02/10/2014 TECHNIQUE: Following the IV administration of 93 cc of Optiray 320, CT scan of the abdomen and pelvis is performed from the lung bases to the proximal femora. Images are reviewed in the axial, sagittal, and coronal planes. IV contrast was administered without complication. A dose lowering technique was utilized adhering to the principles of ALARA. CT DOSE: 1341.97 mGy.cm FINDINGS: Lung bases: The heart is normal in size and without pericardial effusion. The lung bases are clear. Liver: The contrast-enhanced liver is normal in size, contour, and attenuation. There is no intrahepatic biliary ductal dilatation. The hepatic veins and portal veins are patent. Gallbladder: There are large calcified gallstones. Spleen: Normal in size and attenuation. Pancreas: Unremarkable. Adrenal glands: Unremarkable. Kidneys: The contrast enhanced kidneys demonstrate mild cortical atrophy and are without hydronephrosis. The kidneys enhance symmetrically. Abdominal vasculature: The abdominal aorta is normal in course and caliber. Bowel: The stomach and proximal small bowel loops are distended and filled with fluid. Small bowel loops measure up to 3.3 cm in transverse diameter. A transition point is identified in the right lower quadrant on image #351, and the appearance is consistent with a small bowel obstruction. The distal small bowel and colon are decompressed. There is no pneumatosis intestinalis or portal venous gas. No focally thick walled bowel loops are identified. A small volume of interloop fluid is noted. There is mild to moderate colonic diverticulosis without CT evidence of acute diverticulitis. The appendix is not identified and reported surgically absent. Peritoneum: There is no intraperitoneal free air. A small volume of free fluid is seen in the pelvis. There is a small fat-containing umbilical hernia. Surgical clips are identified in the right lower quadrant. Lymphadenopathy: None. Pelvic viscera: The bladder is decompressed and not well evaluated. The prostate gland is diminutive. There are small bilateral fat-containing inguinal hernias. Skeletal structures: No lytic or blastic lesions are seen. IMPRESSION: 1. Findings are consistent with a small bowel obstruction. A transition point is identified in the right lower quadrant and this is likely on the basis of adhesions. 2. Interloop fluid and a small volume of free fluid in the pelvis are likely on a reactive basis. 3. There is no intraperitoneal free air, pneumatosis intestinalis, or focally thick walled bowel loops. 4. Cholelithiasis without CT evidence of acute cholecystitis. 5. Mild to moderate colonic diverticulosis without CT evidence of acute diverticulitis. 6. Additional findings as above. Electronically signed by: Daniel Pritchett M.D. 02/04/2018 4:23 PM Dictated Date/Time: 02/04/2018 4:15 PM
[2018-02-04 16:38] LABS: ALBUMIN 3.6 gm/dl (3.4-5.0); ALT/SGPT 29 U/L (12-78); BLOOD UREA NITROGEN 12 mg/dl (7-18); CALCIUM 9.6 mg/dl (8.5-10.1); CARBON DIOXIDE 29 mmol/L (21-32); CREATININE 1.25 mg/dl (0.60-1.40); GLUCOSE 108 mg/dl (70-99); LIPASE 96 U/L (73-393); POTASSIUM 3.8 mmol/L (3.5-5.1); SODIUM 139 mmol/L (136-145)
[2018-02-04 16:41] LABS: ALKALINE PHOSPHATASE 69 U/L (45-117); AST/SGOT 14 U/L (15-37)
== END | disposition home or self-care (01) ==
LOC: C.CTS 13:22
PROVIDERS: ATTEND Nurse Practitioner Family
DX: R10.9 Unspecified abdominal pain (principal); K80.20 Calculus of gallbladder without cholecystitis without obstruction